=== PATIENT | female | born 1995 | race Caucasian/White ===

== ENCOUNTER 2022-11-24 17:46 | Observation (INO) | payer BC ==
[2022-11-24] MEDS ORDERED: HYDROcodone/Acetaminophen 5/325 mg Tablet PO PRN (17:56)
[2022-11-24] MEDS ORDERED: Bisacodyl 10 MG SUPP PR PRN (17:56)
[2022-11-24] MEDS ORDERED: TETANUS, DIPHTHERIA TOX,ADULT (TDVAX) 0.5 ML VIAL IM ONE (17:56)
[2022-11-24] MEDS ORDERED: Ondansetron PF 4 MG/2 ML Vial IVP PRN (17:56)
[2022-11-24] MEDS ORDERED: Communication Order-Pharmacy FS SCH (18:00)
[2022-11-24 19:37] VITALS: BMI 19.5
[2022-11-24 20:36] LABS: Pregnancy Test - Urine (BHCG) Negative (Negative); Pregu Control Background? CLEAR/WHITE (CLR/WHITE); Pregu Control Bar Appear? YES (CONTROL BAR); Specific Gravity 1.021 (1.002-1.036)
[2022-11-24] MEDS: Aspirin 81 mg Enteric Coated Tablet PO SCH (20:49)
[2022-11-25] MEDS: Aspirin 81 mg Enteric Coated Tablet PO SCH (07:35)
[2022-11-25] MEDS ORDERED: Bacitracin Zinc Ointment 30 gm TUBE ONE (07:56)
[2022-11-25] MEDS ORDERED: Bupivacaine PF 0.5% 30 ML VIAL ONE (07:56)
[2022-11-25] MEDS ORDERED: Sodium Chloride 0.9% 100 ML ONE (08:01)
[2022-11-25] MEDS ORDERED: CEFAZOLIN 2 GM VIAL ONE (08:01)
[2022-11-25] MEDS ORDERED: Dexamethasone 20 MG/5 ML VIAL ONE (08:33)
[2022-11-25] MEDS ORDERED: Ketorolac Tromethamine 30 MG/ML VIAL ONE (08:33)
[2022-11-25] MEDS ORDERED: Ondansetron PF 4 MG/2 ML Vial ONE (08:33)
[2022-11-25] MEDS ORDERED: PROPOFOL 200 MG/20 ML VIAL ONE (08:33)
[2022-11-25] MEDS ORDERED: Lidocaine 1% PF 5 ML VIAL ONE (08:33)
[2022-11-25] MEDS ORDERED: PHENYLEPHRINE-NS 100 MCG/ML 10 ML SYRINGE ONE (08:33)
[2022-11-25] MEDS ORDERED: fentaNYL 50 mcg/mL 1 mL Vial ONE (08:37)
[2022-11-25] MEDS ORDERED: Sevoflurane 250 ML INH ANEST BOTTLE ONE (08:41)
[2022-11-25] MEDS ORDERED: Midazolam HCl 2 mg/2 ml Vial ONE ×2 (08:43→10:14)
[2022-11-25 11:42] VITALS: BP 134/78; TEMP 98.8
== END 2022-11-25 15:50 | disposition home or self-care (01) ==
LOC: SDC/OP 17:46 → INTOOBSV 18:53 → SURG A 18:53
PROVIDERS: ADMIT Orthopaedic Surgery Hand Surgery; ATTEND Orthopaedic Surgery Hand Surgery
PROC: 0LQ80ZZ Repair Left Hand Tendon, Open Approach (ICD-10-PCS; principal; 2022-11-25)
PROC: 01N60ZZ Release Radial Nerve, Open Approach (ICD-10-PCS; 2022-11-25)
DX: S64.495A Injury of digital nerve of left ring finger, initial encounter (principal); X58.XXXA Exposure to other specified factors, initial encounter
CPT/HCPCS: 81025; G0378; G0379; J1100; J1885; J2250; J2405; J2704; J3010; J3490; S0020